=== PATIENT | female | born 1975 | race Caucasian/White ===

== ENCOUNTER 2023-05-31 07:35 | Outpatient (CLI) | payer BC, SELFPAY | END 2023-05-31 07:36 | disposition home or self-care (01) | LOC: NFLDREF 06-13 09:59 | PROVIDERS: Visit Provider Physician Assistant Medical | DX: Z13.220 Encounter for screening for lipoid disorders (principal); Z13.228 Encounter for screening for other metabolic disorders; Z13.29 Encounter for screening for other suspected endocrine disorder | CPT/HCPCS: 80053; 80061; 84443 ==